=== PATIENT | female | born 1965 | race Caucasian/White ===

== ENCOUNTER → 2016-07-02 | Outpatient (CLI) | payer BC ==
[~2016-07-02] MED LIST: CETI10TA84 PO; CLB100 PO; CRAN1CAP15 PO; NITR1CAP33 PO; TRIM100T20 PO; VNTHFA/IN INH
--- NOTE | 2016-07-02 15:59 | DIAGNOSTIC IMAGING REPORT ---
LEFT KNEE 2 VIEWS CLINICAL HISTORY: Left knee pain. FINDINGS: AP and lateral views of the left knee are compared to study dated 09/12/2015. The skeletal structures are well mineralized. No fracture is seen. The joint spaces of the knee appear maintained. There is a small inferior patellar enthesophytes as well as small medial marginal osteophytes. No joint effusion is identified. The overlying soft tissues are within normal limits. IMPRESSION: No acute bony abnormality is seen in the left knee. Electronically signed by: Esteban Lovelace M.D. 07/02/2016 3:58 PM Dictated Date/Time: 07/02/2016 3:56 PM
== END | disposition home or self-care (01) ==
LOC: C.RAD1850 15:42
PROVIDERS: ATTEND Nurse Practitioner Family
DX: M25.562 Pain in left knee (principal)

== ENCOUNTER 2016-08-16 00:44 | Emergency (ER) | payer BC ==
[~2016-08-16] VITALS: Ht 162.6 cm; Wt 109.1 kg
[~2016-08-16 00:44] MED LIST changes: -CLB100 PO; -CRAN1CAP15 PO; -TRIM100T20 PO; -VNTHFA/IN INH
[2016-08-16 00:48] VITALS: TEMP 36.4; Ht 162.6 cm; Wt 109.1 kg
[2016-08-16] MEDS ORDERED: MoRPHine SULFATE 4 MG/ML 1 ML CARP\\VIAL IV STA ×2 (01:04→04:45)
[2016-08-16] MEDS ORDERED: ONDANSETRON INJ 2 MG/ML 2 ML VIAL IV STA (01:04)
[2016-08-16] MEDS ORDERED: SODIUM CHLORIDE 0.9% 500ML 500 ML IV STA (01:04)
[2016-08-16] MEDS ORDERED: SODIUM CHLORIDE 0.9% 1000ML 1,000 ML IV STA (01:04)
[2016-08-16] MEDS ORDERED: OPTIRAY 320 IV PRN (01:15)
[2016-08-16 01:20] VITALS: O2SAT 95
[2016-08-16] MEDS ORDERED: CLB100 PO (01:25)
[2016-08-16] MEDS ORDERED: TRIM100T PO (01:27)
[2016-08-16] MEDS ORDERED: CRAN1CAP15 PO (01:27)
[2016-08-16] MEDS ORDERED: VNTHFA/IN INH (01:30)
[2016-08-16 01:34] LABS: HEMATOCRIT 39.5 % (37-47); MEAN CELL VOLUME 82.8 fL (80-100); MEAN CORPUSCULAR HEMOGLOBIN 27.7 pg (25-34); MEAN CORPUSCULAR HGB CONC 33.4 g/dl (32-36); MEAN PLATELET VOLUME 9.4 fL (7.4-10.4); PLATELET COUNT 283 K/uL (130-400); RED BLOOD COUNT 4.77 M/uL (4.2-5.4); WHITE BLOOD COUNT 10.63 K/uL (4.8-10.8)
[2016-08-16 01:46] LABS: URINE APPEARANCE CLEAR (CLEAR); URINE BILIRUBIN NEG (NEG); URINE COLOR YELLOW; URINE NITRITE NEG (NEG); URINE PH 5.5 (4.5-7.5); URINE SPECIFIC GRAVITY 1.021 (1.000-1.030); UROBILINOGEN NEG (NEG); ZZUR CULT IF INDIC CLEAN CATCH NO
[2016-08-16 01:51] LABS: MANUAL MICROSCOPIC REQUIRED? NO; REVIEW REQ? NO
[2016-08-16 01:51] LABS: ALT/SGPT 23 U/L (12-78); AST/SGOT 8 U/L (15-37); BLOOD UREA NITROGEN 20 mg/dl (7-18); BUN/CREATININE RATIO 16.4 (10-20); CALCIUM 8.5 mg/dl (8.5-10.1); CARBON DIOXIDE 26 mmol/L (21-32); CHLORIDE 109 mmol/L (98-107); GLUCOSE 142 mg/dl (70-99); POTASSIUM 3.6 mmol/L (3.5-5.1); SODIUM 142 mmol/L (136-145)
[2016-08-16 01:53] LABS: ALKALINE PHOSPHATASE 66 U/L (45-117); PREG INTERNAL NEGATIVE QC NEG CLEAR BACKGROUND; PREG INTERNAL POSITIVE QC POS CONTROL LINE
[2016-08-16 01:58] LABS: BASO % 0.2 %; BASO ABS # 0.02 K/uL (0-0.2); COMPLETE YES; IG% 0.2 %; LYMPH % 13.1 %; LYMPH ABS # 1.39 K/uL (1.2-3.4); MONO % 3.5 %
--- NOTE | 2016-08-16 05:43 | EMERGENCY ROOM VISIT NOTE ---
History First contact with patient: 00:51 Chief Complaint: ABDOMINAL PAIN Stated Complaint: LOWER ABDOMINAL PAIN History of Present Illness The patient is a 51 year old female who presents to the Emergency Room with complaints of lower abdominal pain for the past few days that is steadily getting worse with tenesmus. No colonoscopy. No family history of inflammatory bowel disease, diverticulitis, Crohn's, colitis, ulcerative colitis. Patient denies black or blood in the stool. She was increased bowel movements. Patient describes pain as cramping, ranging in severity 6 out of 10 to the lower abdomen. Nothing makes it better or worse. Patient denies chest pain, dyspnea, fever, chills, nausea, vomiting, diarrhea, back pain, urinary symptoms. Review of Systems See HPI for pertinent positives & negatives. A total of 10 systems reviewed and were otherwise negative. Past Medical/Surgical History Pituitary adenoma, endometriosis Social History Smoking Status: Never Smoker Alcohol Use: none Drug Use: none Marital Status: Housing Status: lives with family Occupation Status: employed Current/Historical Medications Scheduled Celecoxib (Celebrex), 100 MG PO BID Cetirizine (Zyrtec), 10 MG PO DAILY Cranberry-Vitamin C-Vitamin E (Cranberry), 2 CAP PO AMPM Trimethoprim (Proloprim), 100 MG PO AMPM Scheduled PRN Albuterol Hfa (Ventolin Hfa), 2 PUFFS INH Q6H PRN for SOB/Wheezing Allergies Coded Allergies: Ibuprofen (Verified Allergy, Unknown, ., 05/24/15) Physical Exam Vital Signs Date Time Temp Pulse Resp B/P Pulse Ox O2 Delivery O2 Flow Rate FiO2 08/16/16 04:49 81 20 140/75 97 Room Air 08/16/16 02:58 81 18 133/77 98 Room Air 08/16/16 01:20 95 Room Air 08/16/16 00:48 36.4 74 18 132/83 100 Room Air Physical Exam VITALS: Vitals are noted on the nurse's note and reviewed by myself. Vital signs stable. GENERAL: Pleasant female, in no acute distress, nondiaphoretic, well-developed well-nourished. SKIN: The skin was without rashes, erythema, edema, or bruising. There is no tenting of the skin. Capillary reflex less than 2 seconds. HEAD: Normocephalic atraumatic. EARS: External auditory canals clear, tympanic membranes pearly bazan without erythema or effusion bilaterally. EYES: Pupils equal round and reactive to light and accommodation. Conjunctivae without injection, sclerae without icterus. Extraocular movements intact. NOSE: Patent, turbinates without inflammation or discharge. MOUTH: Mucous membranes moist. Pharynx without erythema or exudate. Uvula midline. Airway patent. Tongue does not deviate. NECK: Supple without nuchal rigidity. No lymphadenopathy. No thyromegaly. Cervical spine is nontender. No JVD. HEART: Regular rate and rhythm without murmurs gallops or rubs. LUNGS: Clear to auscultation bilaterally without wheezes, rales or rhonchi. No dullness to percussion. No retractions or accessory muscle use. ABDOMEN: Positive bowel sounds x 4. Normal tympanic percussion. Soft, protuberant, obese, tender to palpation lower abdomen, no CVA tenderness without masses or organomegaly. Do sign negative. No guarding or rebound tenderness. Rectal exam: Nonedematous hemorrhoid at 6:00, no fissures or tears MUSCULOSKELETAL: No muscle atrophy, erythema, or edema noted. NEURO: Patient was alert and oriented to person place and time. Normal sensation to light and sharp touch. No focal neurological deficits. Medical Decision & Procedures Laboratory Results 08/16/16 01:17 Red Blood Count 4.77, Mean Corpuscular Volume 82.8, Mean Corpuscular Hemoglobin 27.7, Mean Corpuscular Hemoglobin Concent 33.4, Mean Platelet Volume 9.4, Neutrophils (%) (Auto) 82.0, Lymphocytes (%) (Auto) 13.1, Monocytes (%) (Auto) 3.5, Eosinophils (%) (Auto) 1.0, Basophils (%) (Auto) 0.2, Neutrophils # (Auto) 8.72, Lymphocytes # (Auto) 1.39, Monocytes # (Auto) 0.37, Eosinophils # (Auto) 0.11, Basophils # (Auto) 0.02 08/16/16 01:17 Test 08/16/16 01:17 08/16/16 01:40 White Blood Count 10.63 K/uL (4.8-10.8) Red Blood Count 4.77 M/uL (4.2-5.4) Hemoglobin 13.2 g/dL (12.0-16.0) Hematocrit 39.5 % (37-47) Mean Corpuscular Volume 82.8 fL (80-100) Mean Corpuscular Hemoglobin 27.7 pg (25-34) Mean Corpuscular Hemoglobin Concent 33.4 g/dl (32-36) Platelet Count 283 K/uL (130-400) Mean Platelet Volume 9.4 fL (7.4-10.4) Neutrophils (%) (Auto) 82.0 % Lymphocytes (%) (Auto) 13.1 % Monocytes (%) (Auto) 3.5 % Eosinophils (%) (Auto) 1.0 % Basophils (%) (Auto) 0.2 % Neutrophils # (Auto) 8.72 K/uL (1.4-6.5) Lymphocytes # (Auto) 1.39 K/uL (1.2-3.4) Monocytes # (Auto) 0.37 K/uL (0.11-0.59) Eosinophils # (Auto) 0.11 K/uL (0-0.5) Basophils # (Auto) 0.02 K/uL (0-0.2) RDW Standard Deviation 42.1 fL (36.4-46.3) RDW Coefficient of Variation 13.8 % (11.5-14.5) Immature Granulocyte % (Auto) 0.2 % Immature Granulocyte # (Auto) 0.02 K/uL (0.00-0.02) Red Blood Cell Morphology Unremarkable Anion Gap 7.0 mmol/L (3-11) Est Creatinine Clear Calc Drug Dose 67.7 ml/min Estimated GFR () 61.0 Estimated GFR (Non- 52.7 BUN/Creatinine Ratio 16.4 (10-20) Calcium Level 8.5 mg/dl (8.5-10.1) Total Bilirubin 0.3 mg/dl (0.2-1) Direct Bilirubin < 0.1 mg/dl (0-0.2) Aspartate Amino Transf (AST/SGOT) 8 U/L (15-37) Alanine Aminotransferase (ALT/SGPT) 23 U/L (12-78) Alkaline Phosphatase 66 U/L (45-117) Total Protein 7.5 gm/dl (6.4-8.2) Albumin 3.6 gm/dl (3.4-5.0) Lipase 286 U/L (73-393) Human Chorionic Gonadotropin, Qual NEG (NEG) Urine Color YELLOW Urine Appearance CLEAR (CLEAR) Urine pH 5.5 (4.5-7.5) Urine Specific [place] 1.021 (1.000-1.030) Urine Protein NEG (NEG) Urine Glucose (UA) NEG (NEG) Urine Ketones NEG (NEG) Urine Occult Blood NEG (NEG) Urine Nitrite NEG (NEG) Urine Bilirubin NEG (NEG) Urine Urobilinogen NEG (NEG) Urine Leukocyte Esterase NEG (NEG) Medications Administered Medications (Trade) Dose Ordered Sig/Augustin Route Start Time Stop Time Status Last Admin Dose Admin Sodium Chloride 1,000 ml @ 125 mls/hr Q8H STAT IV 08/16/16 01:04 08/16/16 09:03 08/16/16 01:31 125 MLS/HR Sodium Chloride (Nss 500ml) 500 ml @ 999 mls/hr Q31M STAT IV 08/16/16 01:04 08/16/16 01:34 DC 08/16/16 01:31 999 MLS/HR Morphine Sulfate (MoRPHine SULFATE INJ) 4 mg NOW STAT IV 08/16/16 01:04 08/16/16 01:07 DC 08/16/16 01:30 4 MG Ondansetron HCl (Zofran Inj) 4 mg NOW STAT IV 08/16/16 01:04 08/16/16 01:07 DC 08/16/16 01:29 4 MG ED Course Prior records/ancillary studies reviewed. Triage Nursing notes reviewed. Additional history obtained from family. The patient's history was concerning for abdominal pain. Differential diagnosis: Etiologies such as appendicitis, diverticulitis, PUD, biliary pathology, UTI, pancreatitis, obstruction, mesenteric ischemia, aortic pathology, infections, inflammatory bowel disease, renal colic, as well as others were entertained. Physical examination findings: As above. ER treatment provided: Morphine, Zofran, IV fluids On reassessment the patient felt better. Diagnostics interpreted by me: The labs revealed hyperglycemia without DKA. Negative urine Imaging studies: US PELVIC/ENDOVAG: Compared with CT abdomen and pelvis tonight. History of left oophorectomy and right fallopian tube removal. Retroflexed Uterus. 2.1 cm anterior uterine fibroid, 1.8 cm posterior uterine fibroid. Enlarged right ovary measuring 6.8 x 3.4 x 3.7 cm. No evidence of torsion. 2 complex cysts and one simple cyst of the right ovary, largest 3.4 cm. Complex cysts are likely hemorrhagic. Simple cyst, appears crenated somewhat collapsed, measuring 2.8 cm. Complex free fluid in the cul-de-sac and around the right adnexa may be hemorrhagic or debris. Radiologist: Gila Hartley M.D. Exam and history seem consistent with ovarian cyst and fibroid. Patient follows at [facility]. She is advised to follow-up and repeat pelvic ultrasound in 6 weeks for resolution of cyst. No signs of torsion on ultrasound. Patient was neurovascularly and neurologically intact. She was well-appearing. She is Advised to follow-up with GI for colonoscopy and for further evaluation and workup for her bowel issues. Patient felt much better after being medicated as above. She did not have acute abdomen on exam. She is advised to return to the ER immediately for abdominal pain, fevers, vomiting , worsening signs or symptoms or as needed.By the evaluation outlined above emergent etiologies such as appendicitis, diverticulitis, PUD, biliary pathology , UTI, pancreatitis, obstruction, mesenteric ischemia, aortic pathology, infections, inflammatory bowel disease, renal colic, as well as others were deemed relatively unlikely. The pt informed about the findings as listed above. All questions were answered and pleased with the treatment. Return instructions were outlined and the patient was discharged in stable condition. Outpatient prescription management: [place] Referral: The patient was referred back to their primary care physician and gastroenterology and her [facility] [facility] for follow-up in 2 to 3 days for a recheck of the current condition. Case reviewed with my attending Medical Decision As above Impression Primary Impression: Right ovarian cyst Additional Impressions: Tenesmus Hyperglycemia Departure Information Dispostion Home / Self-Care Condition GOOD Referrals Norma Cordoba DO (PCP) Patient Instructions My [facility] Additional Instructions Repeat pelvic ultrasound in 6 weeks for resolution of cyst. Your blood sugar was high today. Repeat this with family care. Increase your fluid and fiber intake. Paton diet. Rest and drink plenty of fluids as tolerated. Continue current medications. Avoid strenuous activities and anything that worsens your pain. Resume normal activities once your symptoms resolve. Return to the ER immediately for worsening or persistent abdominal pain, vomiting, fevers, chest pains, difficulty breathing, worsening of your condition , or as needed. Follow up with your primary physician, [facility] [employer] [facility]IST and gastroenterology for further evaluation and workup in 2-3 days for a recheck of your current condition. Problem Qualifiers
[2016-08-16 05:59] VITALS: BP 121/70; PULSE 77; O2SAT 96
[2016-08-16] MEDS ORDERED: ONDANSETRON HOME PACK 4MG OD TAB PO ONE (06:00)
[2016-08-16] MEDS ORDERED: OXYCODONE IR HOME PACK PO ONE (06:00)
--- NOTE | 2016-08-16 07:25 | DIAGNOSTIC IMAGING REPORT ---
ABDOMEN AND PELVIS CT WITH IV CONTRAST CT DOSE: 1394.22 mGy.cm HISTORY: Lower abdominal pain. TECHNIQUE: Multiaxial CT images of the abdomen and pelvis were performed following the use of intravenous contrast. COMPARISON STUDY: None. FINDINGS: A 6 mm nodule within the right middle lobe on image 4. Mild dependent changes seen at the lung bases. A few colonic diverticula. No bowel wall thickening or obstruction. No hepatic or splenic masses. Normal adrenal glands. The pancreas and gallbladder are unremarkable. No retroperitoneal lymphadenopathy. Markedly atrophic left kidney with areas of severe cortical scarring. No hydronephrosis. Multiple focal areas of severe cortical scarring within the right kidney. Bladder and uterus are unremarkable. There are 2 cysts within the right ovary with the largest measuring 3.4 cm. There is trace pelvic fluid. Normal appendix. IMPRESSION: 1. No bowel wall thickening or obstruction. 2. There are 2 cysts within the right ovary with the largest measuring 3.4 cm. Trace pelvic fluid which could be physiologic. 3. No bowel wall thickening or obstruction. 4. Bilateral cortical renal scarring with an age of the left kidney. No hydronephrosis. 5. A 6 mm indeterminate pulmonary nodule within the right middle lobe. Please refer to the chart below for recommended follow-up. Please refer to below summary of Fleischner criteria recommendations for follow-up of incidental CT nodules (Clifton Oconnor, Guidelines for management of small pulmonary nodules detected on CT scans: A statement from the Fleischner Society, Radiology 237: [phone].) SOLID NODULES Solitary nodule size: <6 mm * Low risk patients: no follow-up needed * high risk patients: optional CT at 12 months Solitary nodule size: 6-8 mm * Low risk patients: follow-up at 6-12 months, then consider further follow-up at 18-24 months * high risk patients: initial follow-up CT at 6-12 months and then at 18-24 months if no change Solitary nodule size: >8 mm * either low or high risk patients - consider follow-up CT at 3 months, and/or CT-PET, and/or biopsy Multiple nodules size: <6 mm * Low risk patients: no routine follow-up * high risk patients: optional CT at 12 months Multiple nodules size: 6-8 mm * Low risk patients: follow-up at 3-6 months, then consider further follow-up at 18-24 months * high risk patients: follow-up at 3-6 months, then at 18-24 months if no change Multiple nodules size: >8 mm * Low risk patients: follow-up at 3-6 months, then consider further follow-up at 18-24 months * high risk patients: follow-up at 3-6 months, then at 18-24 months if no change Note: newly detected indeterminate nodule in persons 35 years of age or older. * Low risk patients: minimal or absent history of smoking and/or other known risk factors * high risk patients: history of smoking or of other known risk factors (e.g. first degree relative with lung cancer, or exposure to asbestos, radon, uranium) * if a nodule up to 8 mm is partly solid or is ground glass further follow-up is required after 24 months to exclude possible slow growing adenocarcinoma (MARTIN) SUBSOLID NODULES Solitary pure ground-glass nodule * nodule size <6 mm - no CT follow-up required * nodule size >=6 mm - follow-up CT at 6-12 months, then every 2 years until 5 years Solitary part-solid nodule * nodule size <6 mm - no CT follow-up required * nodule size >=6 mm - follow-up CT at 3-6 months. If unchanged, and solid component remains <6 mm, then annual follow-up for 5 years Multiple subsolid nodules * nodule size <6 mm - follow-up CT at 3-6 months, consider further follow-up at 2 and 4 years if stable * nodule size >=6 mm - follow-up CT at 3-6 months, subsequent management based on the most suspicious nodule(s) Electronically signed by: Cameron Velasquez M.D. 08/16/2016 7:23 AM Dictated Date/Time: 08/16/2016 7:14 AM
--- NOTE | 2016-08-16 07:49 | DIAGNOSTIC IMAGING REPORT ---
PELVIC ULTRASOUND, TRANSABDOMINAL AND TRANSVAGINAL HISTORY: Lower abdominal pain. COMPARISON: Abdomen and pelvis CT 08/16/2016. FINDINGS: Uterus: Retroflexed. 9.5 x 5.4 4.6 cm. There are 2 hypoechoic masses within the uterus with the largest measuring 2.1 cm. These favor fibroids. Endometrial stripe: 9 mm in thickness. Right ovary: There are 2 similar-appearing complex cyst within the right ovary. These demonstrate low-level internal echoes. The largest cyst measures 3.4 x 2.8 x 2.0 cm. The right ovary measures 6.8 x 3.4 x 3.7 cm. There is normal color-flow within the right ovary. There is also a simple appearing cyst measuring 2.8 cm. Left ovary: Surgically absent. Miscellaneous:Small amount of complex fluid within the right adnexa and pelvic cul-de-sac. IMPRESSION: 1. Enlarged right ovary due to the 2 similar-appearing complex cysts measuring 3.4 cm. These may represent hemorrhagic cysts or endometriomas. 6 - 8 week pelvic ultrasound follow-up is recommended to ensure resolution. 2. The left ovary is reportedly surgically absent. 3. There are 2 similar-appearing hypoechoic lesions within the uterus consistent with fibroids. The largest measures 2.1 cm. 4. Small amount of complex fluid within the right adnexa and pelvic cul-de-sac. 5. The endometrial stripe measures 9 mm in thickness. This is considered abnormal if the patient is postmenopausal. Electronically signed by: Cameron Velasquez M.D. 08/16/2016 7:47 AM Dictated Date/Time: 08/16/2016 7:43 AM
== END 2016-08-16 06:04 | disposition home or self-care (01) ==
LOC: C.EDB 00:45
DX: N83.201 Unspecified ovarian cyst, right side (principal)

== ENCOUNTER → 2016-08-18 | Outpatient (CLI) | payer BC ==
[~2016-08-18] MED LIST changes: +CLB100 PO; +CRAN1CAP15 PO; -NITR1CAP33 PO; +TRIM100T PO; +VNTHFA/IN INH
--- NOTE | 2016-08-18 17:01 | DIAGNOSTIC IMAGING REPORT ---
KUB CLINICAL HISTORY: Vesicoureteral reflux. FINDINGS: 2 AP supine abdominal radiograph are correlated with abdominal CT dated 08/16/2016. There is a nonobstructed abdominal bowel gas pattern noting moderate colonic fecal retention. There is no radiographic evidence of nephrolithiasis. The bony structures appear intact. The lung bases are clear as imaged. IMPRESSION: There is no radiographic evidence of nephrolithiasis. Electronically signed by: Esteban Lovelace M.D. 08/18/2016 4:59 PM Dictated Date/Time: 08/18/2016 4:57 PM
[2016-08-18 17:06] LABS: BLOOD UREA NITROGEN 16 mg/dl (7-18); BUN/CREATININE RATIO 14.9 (10-20); CALCIUM 8.8 mg/dl (8.5-10.1); CARBON DIOXIDE 25 mmol/L (21-32); CHLORIDE 107 mmol/L (98-107); GLUCOSE 93 mg/dl (70-99); SODIUM 141 mmol/L (136-145)
== END | disposition home or self-care (01) ==
LOC: C.RAD 16:11
PROVIDERS: ATTEND Nurse Practitioner Family
DX: N13.70 Vesicoureteral-reflux, unspecified (principal); R82.90 Unspecified abnormal findings in urine

== ENCOUNTER → 2016-12-01 | Outpatient (CLI) | payer BC ==
[~2016-12-01] MED LIST changes: -TRIM100T PO; +TRIM100T20 PO
--- NOTE | 2016-12-01 14:05 | MAMMOGRAPHY REPORT ---
BILATERAL DIGITAL SCREENING MAMMOGRAM TOMOSYNTHESIS WITH CAD: 12/01/2016 CLINICAL HISTORY: Routine screening examination. TECHNIQUE: Breast tomosynthesis in addition to standard 2D mammography was performed. Current study was also evaluated with a Computer Aided Detection (CAD) system. COMPARISON: Comparison is made to exams dated: 11/29/2015 mammogram, 12/12/2014 ultrasound, 12/12/2014 mammogram, 11/27/2014 mammogram, 11/24/2013 mammogram, and 11/23/2012 mammogram - [facility]. BREAST COMPOSITION: The tissue of both breasts is heterogeneously dense, which may obscure small mas ses. FINDINGS: There is stable nodularity in the medial posterior left breast. No suspicious spiculated o r irregular mass, architectural distortion or cluster of suspicious microcalcifications is seen. IMPRESSION: ACR BI-RADS CATEGORY 1: NEGATIVE There is no mammographic evidence of malignancy. A 1 year screening mammogram is recommended. The pa tient will receive written notification of the results. Approximately 10% of breast cancers are not detected with mammography. A negative mammographic report should not delay biopsy if a clinically suggestive mass is present. Leanna Gentile M.D. ay/:12/01/2016 12:42:15 Shipping Lead Person: Manjula NICOLE(R)(M), [facility] letter sent: Normal 1/2 BI-RADS Code: ACR BI-RADS Category 1: Negative
== END | disposition home or self-care (01) ==
LOC: C.MAMM 10:32
PROVIDERS: ATTEND Obstetrics & Gynecology
DX: Z12.31 Encounter for screening mammogram for malignant neoplasm of breast (principal)

== ENCOUNTER → 2017-03-16 | Outpatient (CLI) | payer BC ==
[~2017-03-16] MED LIST changes: +TRIM100T PO; -TRIM100T20 PO
== END | disposition home or self-care (01) ==
LOC: C.PAPS 11:35
PROVIDERS: ATTEND Obstetrics & Gynecology
DX: Z01.419 Encounter for gynecological examination (general) (routine) without abnormal findings (principal)

== ENCOUNTER → 2017-03-31 | Outpatient (CLI) | payer BC ==
[2017-03-31 16:35] LABS: COMPLETE YES; HEMATOCRIT 39.9 % (37-47); IG% 0.2 %; LYMPH % 25.1 %; LYMPH ABS # 1.65 K/uL (1.2-3.4); MEAN CELL VOLUME 84.4 fL (80-100); MEAN CORPUSCULAR HEMOGLOBIN 28.3 pg (25-34); MEAN CORPUSCULAR HGB CONC 33.6 g/dl (32-36); MEAN PLATELET VOLUME 9.9 fL (7.4-10.4); MONO % 6.2 %; NEUT % 68.5 %; PLATELET COUNT 315 K/uL (130-400); RED BLOOD COUNT 4.73 M/uL (4.2-5.4); WHITE BLOOD COUNT 6.57 K/uL (4.8-10.8)
== END | disposition home or self-care (01) ==
LOC: C.LAB1850 15:14
PROVIDERS: ATTEND Nurse Practitioner Family
DX: R21 Rash and other nonspecific skin eruption (principal)

== ENCOUNTER → 2017-04-29 | Outpatient (CLI) | payer BC ==
[~2017-04-29] MED LIST changes: +NITR1CAP33 PO
[2017-04-29 13:06] LABS: ALBUMIN 3.4 gm/dl (3.4-5.0); ALT/SGPT 22 U/L (12-78); BLOOD UREA NITROGEN 21 mg/dl (7-18); CALCIUM 8.8 mg/dl (8.5-10.1); CARBON DIOXIDE 26 mmol/L (21-32); CHOLESTEROL 212 mg/dl (0-200); CREATININE 0.97 mg/dl (0.60-1.20); GLUCOSE 118 mg/dl (70-99); POTASSIUM 3.8 mmol/L (3.5-5.1); SODIUM 140 mmol/L (136-145)
[2017-04-29 13:09] LABS: ALKALINE PHOSPHATASE 60 U/L (45-117); AST/SGOT 13 U/L (15-37); LDL CHOLESTEROL CALCULATED 126 mg/dl; TOTAL PROTEIN 7.3 gm/dl (6.4-8.2)
== END | disposition home or self-care (01) ==
LOC: C.LABMFLN 07:54
PROVIDERS: ATTEND Nurse Practitioner Family
DX: Z00.00 Encounter for general adult medical examination without abnormal findings (principal); Z13.220 Encounter for screening for lipoid disorders

== ENCOUNTER → 2017-05-13 | Day surgery (SDC) | payer BC, OTHER ==
[2017-05-05 10:00] VITALS: BMI 41.0
[~2017-05-13] VITALS: Ht 162.6 cm; Wt 109.1 kg
[~2017-05-13] MED LIST changes: -CETI10TA84 PO; -CLB100 PO; -CRAN1CAP15 PO; +LIDOCAINE HCL 2% 2 ML VIAL (20MG/ML) ONE; +PROPOFOL IV EMULSION 10 MG/ML 20 ML VIAL IV ONE; +SODIUM CHLORIDE 0.9% 500ML 500 ML IV ONE; -TRIM100T PO; -VNTHFA/IN INH
[2017-05-13 14:19] VITALS: Ht 162.6 cm; Wt 109.1 kg
[2017-05-13 14:28] VITALS: TEMP 36.5
--- NOTE | 2017-05-13 14:35 | Endo History and Physical ---
History & Physical Date of Service: May 13, 2017. Chief Complaint: SCREENING Referring Physician: MANDY ORR History of Present Illness 52 yo CF who presents for screening colonoscopy. Past Surgical History Hx Cardiac Surgery: No Hx Internal Defibrillator: No Hx Pacemaker: No Hx Abdominal Surgery: Yes ( X2, TUBAL LIGATION, ENDOMETRIAL MASS REMOVAL (BENIGN)) Hx of Implantable Prosthesis: No Hx Post-Op Nausea and Vomiting: No Hx Cancer Surgery: No Hx Thoracic Surgery: No Hx Orthopedic: No Hx Urinary Tract Surgery: No Family History None Social History Smoking Status: Never Smoker Hx Substance Use: No Hx Alcohol Use: No Allergies Coded Allergies: Ibuprofen (Verified Allergy, Unknown, SNEEZING UNCONTROLLABLY WITH LARGE DOSE, 05/13/17) Current Medications Reported Home Medications Medications Dose Route/Sig Max Daily Dose Days Date Category Macrodantin (Nitrofurantoin Macrocrystals) 50 Mg Cap 50 Mg PO HS 05/05/17 Reported Vital Signs Weight (Kilograms): 109.09 Height (Feet): 5 Height (Inches): 4 Date Time Temp Pulse Resp B/P (MAP) Pulse Ox O2 Delivery O2 Flow Rate FiO2 05/13/17 14:28 36.5 61 18 145/67 (93) 100 Room Air Physical Exam General Appearance: WD/WN, no apparent distress Respiratory/Chest: Auscultation: breath sounds normal Cardiovascular: Heart Auscultation: RRR Abdomen: Bowel Sounds: normal Inspection & Palpation: soft, non-distended, no tenderness, guarding & rebound Assessment and Plan Assessment: 52 yo CF who presents for screening colonoscopy. Plan: Proceed with colonoscopy.
--- NOTE | 2017-05-13 15:34 | Discharge Instructions ---
Endoscopy Patient Instructions Date / Procedure(s) Performed May 13, 2017. Colonoscopy Allergy Information Coded Allergies: Ibuprofen (Verified Allergy, Unknown, SNEEZING UNCONTROLLABLY WITH LARGE DOSE, 05/13/17) Discharge Date / Findings May 13, 2017. Colon polyps Internal hemorrhoids Medication Instructions OK to resume all medications today as prescribed Reported Home Medications Medications Dose Route/Sig Max Daily Dose Days Date Category Macrodantin (Nitrofurantoin Macrocrystals) 50 Mg Cap 50 Mg PO HS 05/05/17 Reported Provider Instructions Activity Restrictions - No exercising or heavy lifting for 24 hours. - Do not drink alcohol the day of the procedure. - Do not drive a car or operate machinery until the day after the procedure. - Do not make any important decisions or sign important papers in 24 hours after the procedure. Following Day: - Return to full activity which may include returning to work/school. Diet Start your diet with liquids and light foods (jello, soup, juice, toast). Then eat your usual diet if not nauseated. Treatment For Common After Affects For mild abdominal pain, bloating, or excessive gas: - Rest - Eat lightly - Lie on right side Follow-Up Information Follow-up with MANDY ORR as scheduled Anesthesia Information What You Should Know You have had a procedure that required some medicine to reduce anxiety and discomfort. This treatment is called moderate sedation. After receiving the treatment, you may be sleepy, but you will be able to breathe on your own. The effects of the treatment may last for several hours. Follow these instructions along with Activity/Diet recommendations noted above: * Do NOT do anything where dizziness or clumsiness would be dangerous. * Rest quietly at home today, then you can be up and about tomorrow. * Have a responsible person stay with you the rest of today. * You may have had an I.V. today. If so, you may take the dressing off later today. Recommendations Call your doctor if: * Trouble breathing * Continuous vomiting for more than 24 hours * Temperature above 101 degrees * Severe abdominal pain or bloating * Pain not relieved by pain medicine ordered * There is increased drainage or redness from any incision * A large amount of rectal bleeding greater than 2-3 tablespoons. (If you had a polyp/s removed or have hemorrhoids, a small amount of blood - from the rectum is to be expected.) * You have any unanswered questions or concerns. IN THE EVENT OF A SERIOUS EMERGENCY, GO TO THE NEAREST EMERGENCY ROOM Your discharge instructions were prepared by provider Mitchell Collazo. Patient Instructions Signature Page Alexa Solis Patient (or Guardian) Signature/Date: I have read and understand the instructions given to me by my caregivers. Caregiver/RN/Doctor Signature/Date: The above-named patient and/or guardian has received patient instructions on this date. + Original Patient Signature Page (only) stays with chart. Please make copy for patient.
--- NOTE | 2017-05-13 15:41 | GI REPORT ---
Procedure Date: 05/13/2017 2:43 PM Procedure: Colonoscopy Indications: Screening for colorectal malignant neoplasm Medicines: Monitored Anesthesia Care Complications: No immediate complications. Estimated Blood Loss: Estimated blood loss: none. Procedure: Pre-Anesthesia Assessment: - Prior to the procedure, a History and Physical was performed, and patient medications and allergies were reviewed. The patient's tolerance of previous anesthesia was also reviewed. The risks and benefits of the procedure and the sedation options and risks were discussed with the patient. All questions were answered, and informed consent was obtained. Prior Anticoagulants: The patient has taken no previous anticoagulant or antiplatelet agents. ASA Grade Assessment: II - A patient with mild systemic disease. After reviewing the risks and benefits, the patient was deemed in satisfactory condition to undergo the procedure. After I obtained informed consent, the scope was passed under direct vision. Throughout the procedure, the patient's blood pressure, pulse, and oxygen saturations were monitored continuously. The scope was introduced through the anus and advanced to the terminal ileum. The colonoscopy was performed without difficulty. The patient tolerated the procedure well. The quality of the bowel preparation was good. The terminal ileum, ileocecal valve, appendiceal orifice, and rectum were photographed. Findings: The perianal and digital rectal examinations were normal. Two sessile polyps were found in the sigmoid colon. The polyps were 4 to 6 mm in size. These polyps were removed with a hot snare. Resection and retrieval were complete. Non-bleeding internal hemorrhoids were found during retroflexion. The hemorrhoids were small. Impression: - Two 4 to 6 mm polyps in the sigmoid colon, removed with a hot snare. Resected and retrieved. - Non-bleeding internal hemorrhoids. Recommendation: - Resume previous diet. - Continue present medications. - Repeat colonoscopy for surveillance based on pathology results. - Return to primary care physician as previously scheduled. Mitchell Collazo, DO 05/13/2017 3:40:49 PM This report has been signed electronically. Note Initiated On: 05/13/2017 2:43 PM I attest to the content of the Intraoperative Record and orders documented therein, exceptions below
[2017-05-13 16:03] VITALS: BP 142/91; PULSE 60; O2SAT 100
--- NOTE | 2017-05-13 16:03 | Anesthesiology Progress Note ---
Anesthesia Post Op Note Date & Time May 13, 2017 at 16:02 Vital Signs Pain Intensity: 0 Vital Signs Past 12 Hours Date Time Temp Pulse Resp B/P (MAP) Pulse Ox O2 Delivery O2 Flow Rate FiO2 05/13/17 15:49 61 20 137/90 (106) 100 Room Air 05/13/17 15:34 76 18 135/72 (93) 99 Room Air 05/13/17 14:28 36.5 61 18 145/67 (93) 100 Room Air Notes Mental Status: alert / awake / arousable, participated in evaluation Pt Amnestic to Procedure: Yes Nausea / Vomiting: adequately controlled Pain: adequately controlled Airway Patency, RR, SpO2: stable & adequate BP & HR: stable & adequate Hydration State: stable & adequate Anesthetic Complications: no major complications apparent
== END | disposition home or self-care (01) ==
LOC: C.GI 13:59
PROVIDERS: ATTEND Internal Medicine
DX: Z12.11 Encounter for screening for malignant neoplasm of colon (principal); K64.8 Other hemorrhoids; D12.5 Benign neoplasm of sigmoid colon; E66.9 Obesity, unspecified

== ENCOUNTER → 2017-09-02 | Outpatient (CLI) | payer OTHER ==
[~2017-09-02] MED LIST changes: -LIDOCAINE HCL 2% 2 ML VIAL (20MG/ML) ONE; -PROPOFOL IV EMULSION 10 MG/ML 20 ML VIAL IV ONE; -SODIUM CHLORIDE 0.9% 500ML 500 ML IV ONE
[2017-09-02 13:32] LABS: ALBUMIN 3.5 gm/dl (3.4-5.0); ALT/SGPT 21 U/L (12-78); AST/SGOT 13 U/L (15-37); BLOOD UREA NITROGEN 18 mg/dl (7-18); CALCIUM 8.3 mg/dl (8.5-10.1); CARBON DIOXIDE 26 mmol/L (21-32); GLUCOSE 111 mg/dl (70-99); HEMOGLOBIN A1C 5.9 % (4.5-5.6); POTASSIUM 3.8 mmol/L (3.5-5.1); SODIUM 142 mmol/L (136-145)
[2017-09-02 13:35] LABS: ALKALINE PHOSPHATASE 67 U/L (45-117)
== END | disposition home or self-care (01) ==
LOC: C.LABMFLN 07:30
PROVIDERS: ATTEND Urology
DX: Z00.00 Encounter for general adult medical examination without abnormal findings (principal); E78.00 Pure hypercholesterolemia, unspecified; R73.9 Hyperglycemia, unspecified

== ENCOUNTER → 2017-09-04 | Outpatient (CLI) | payer OTHER ==
--- NOTE | 2017-09-04 09:34 | DIAGNOSTIC IMAGING REPORT ---
KUB CLINICAL HISTORY: N20.0 [id number] nephrocalcinosis COMPARISON STUDY: 08/18/2016 FINDINGS: Nonobstructive bowel pattern. Curvilinear calcification overlying the upper pole right kidney measuring 5 x 2.5 mm. No significant paravertebral calcifications. IMPRESSION: 5 x 2.5 mm curvilinear calcification upper pole right kidney. Remainder of the study is unremarkable. The above report was generated using voice recognition software. It may contain grammatical, syntax or spelling errors. Electronically signed by: Tom Goncalves M.D. 09/04/2017 9:32 AM Dictated Date/Time: 09/04/2017 9:31 AM
== END | disposition home or self-care (01) ==
LOC: C.RAD 08:52
PROVIDERS: ATTEND Urology
DX: N20.0 Calculus of kidney (principal)

== ENCOUNTER → 2017-12-03 | Outpatient (CLI) | payer OTHER ==
--- NOTE | 2017-12-03 14:57 | MAMMOGRAPHY REPORT ---
BILATERAL DIGITAL SCREENING MAMMOGRAM TOMOSYNTHESIS WITH CAD: 12/03/2017 CLINICAL HISTORY: Routine screening. TECHNIQUE: The study was acquired using full field digital technology and interpreted from soft copy. Breast tomosynthesis in addition to standard 2D mammography was performed. Current study was also ev aluated with a Computer Aided Detection (CAD) system. COMPARISON: Comparison is made to exams dated: 12/01/2016 mammogram, 11/29/2015 mammogram, 11/27/2014 m ammogram, 11/24/2013 mammogram, 11/23/2012 mammogram, and 12/12/2014 mammogram - [facility] enter. BREAST COMPOSITION: The tissue of both breasts is heterogeneously dense, which may obscure small mass es. FINDINGS: No suspicious masses, calcifications, or areas of architectural distortion are noted in either breast . There has been no significant interval change compared to prior exams. IMPRESSION: ACR BI-RADS CATEGORY 1: NEGATIVE There is no mammographic evidence of malignancy. A 1 year screening mammogram is recommended.( [id number]) The patient will receive written notification of the results. Some breast cancers are not detected with mammography. A negative mammographic report should not nivia y biopsy if a clinically suggestive mass is present. Elena Lo M.D. ah/:12/03/2017 09:33:21 Veterinarian: RT Familia(Martín)(M), [facility] letter sent: Normal 1/2 BI-RADS Code: ACR BI-RADS Category 1: Negative
== END ==
LOC: C.MAMM 08:26
PROVIDERS: ATTEND Obstetrics & Gynecology
DX: Z12.31 Encounter for screening mammogram for malignant neoplasm of breast (principal)